=== PATIENT | male | born 1955 | race Caucasian/White ===

== ENCOUNTER → 2016-10-20 | Outpatient (CLI) | payer OTHER ==
[~2016-10-20] MED LIST: ACET500T71 PO; AMLO10TA2 PO; AMLO5TAB2 PO; ASPI-496 PO; ATEN50TA41 PO; ATOR80TA75 PO; CARV6.252 PO; CEFD300C37 PO; CHOL200024 PO; CLOP75TA PO; DIAZ5TAB4 PO; DOXE150C PO; DOXY100T PO; FAMO20TA7 PO; FURO20TA3 PO; GEMF600T3 PO; LOSA50TA6 PO; MELA5TAB PO; MORP30TA81 PO; MULT-717 PO; OXYC-229 PO; OXYC-302 PO; PRED10TA PO; [UNRECOGNIZED DRUG - OTHER]; [UNRECOGNIZED DRUG - OTHER] PO; testosterone IM
== END | disposition home or self-care (01) ==
LOC: CFH 12:54
PROVIDERS: ATTEND Internal Medicine Cardiovascular Disease
DX: I08.0 Rheumatic disorders of both mitral and aortic valves (principal); I25.5 Ischemic cardiomyopathy; I37.1 Nonrheumatic pulmonary valve insufficiency; I25.10 Atherosclerotic heart disease of native coronary artery without angina pectoris; I25.2 Old myocardial infarction; Z95.1 Presence of aortocoronary bypass graft
CPT/HCPCS: 93306

== ENCOUNTER 2017-03-05 10:07 | Observation (INO) | payer OTHER ==
[2017-02-26 12:10] VITALS: BP 117/83
[~2017-03-05] VITALS: Ht 177.8 cm; Wt 93.0 kg
[~2017-03-05 10:07] MED LIST changes: +ALBU6.7H INH; +ATOR-2 PO; -ATOR80TA75 PO; -MELA5TAB PO; +MELA5TAB19 PO; -OXYC-229 PO; +OXYC-307 PO; +TICA90TA PO; +[UNRECOGNIZED DRUG - OTHER] PO
[2017-03-05] MEDS ORDERED: DOXE150C PO (10:54)
[2017-03-05] MEDS ORDERED: methylPREDNISolone SOD SUCC 125 MG/2 ML ONE (12:19)
[2017-03-05] MEDS ORDERED: DIPHENHYDRAMINE 50 MG/ML, 1ML ONE ×2 (12:19→13:00)
[2017-03-05] MEDS ORDERED: LIDOCAINE 2%, 20ML ONE (12:20)
[2017-03-05] MEDS ORDERED: CEFAZOLIN PMX 1GM/50ML 0 ML ONE (12:20)
[2017-03-05] MEDS ORDERED: CEFAZOLIN 1,000 MG ONE (12:20)
[2017-03-05] MEDS ORDERED: MIDAZOLAM 1 MG/ML, 5ML ONE (12:54)
[2017-03-05] MEDS ORDERED: FENTANYL PF 100 MCG/2ML ONE (12:54)
[2017-03-05] MEDS ORDERED: ONDANSETRON 2MG/ML, 2ML ONE (13:00)
[2017-03-05] MEDS ORDERED: PHENYLEPHRINE 10 MG/ML ONE (13:00)
[2017-03-05] MEDS ORDERED: PROPOFOL 10 MG/ML, 20ML ONE (13:00)
[2017-03-05] MEDS ORDERED: ROCURONIUM 10 MG/ML ONE (13:00)
[2017-03-05] MEDS ORDERED: SUCCINYLCHOLINE 20 MG/ML, 10ML ONE (13:00)
[2017-03-05] MEDS ORDERED: VANCOMYCIN 500 MG ONE (13:03)
[2017-03-05] MEDS ORDERED: VANCOMYCIN PMX 1GM/200ML 200 ML ONE (13:04)
[2017-03-05] MEDS ORDERED: DIAZEPAM 5 MG TABLET PO PRN (14:30)
[2017-03-05] MEDS ORDERED: LABETALOL 5MG/ML, 20ML IV PRN (14:30)
[2017-03-05] MEDS ORDERED: hydrALAzine 20 MG/ML, 1ML IV PRN (14:30)
[2017-03-05] MEDS ORDERED: ONDANSETRON 2MG/ML, 2ML IVPush PRN (14:30)
[2017-03-05] MEDS ORDERED: MEPERIDINE/PF 25MG/0.5ML IVPush PRN (14:30)
[2017-03-05] MEDS ORDERED: OXYcodone 5 MG/5 ML ORAL.SOL UDC PO PRN (14:30)
[2017-03-05] MEDS ORDERED: MIDAZOLAM 1 MG/ML, 2ML IV PRN (14:30)
[2017-03-05] MEDS ORDERED: ONDANSETRON 2MG/ML, 2ML IV PRN (14:30)
[2017-03-05] MEDS ORDERED: HYDROmorphone 1 MG/ML, 1ML IV PRN (14:30)
[2017-03-05] MEDS ORDERED: VANCOMYCIN PMX 1GM/200ML 200 ML IVPB SCH (14:30)
[2017-03-05] MEDS ORDERED: PROMETHAZINE 25 MG/ML, 1ML IV PRN (14:30)
[2017-03-05] MEDS ORDERED: ALBUTEROL SULFATE 2.5 MG/3 ML NPPB PRN ×2 (14:30)
[2017-03-05] MEDS ORDERED: OXYcodone/APAP 10/325MG TABLET PO PRN (14:30)
[2017-03-05] MEDS ORDERED: FENTANYL PF 100 MCG/2ML IV PRN (14:30)
[2017-03-05 15:58] VITALS: BP 109/68
[2017-03-05] MEDS ORDERED: VENTOLIN INH PRN (17:00)
[2017-03-05 19:54] VITALS: BP 102/66
[2017-03-05] MEDS: TICAGRELOR 90 MG TABLET PO SCH (21:00)
[2017-03-05] MEDS ORDERED: FAMOTIDINE 20 MG TABLET PO SCH (21:00)
[2017-03-05] MEDS ORDERED: ATORVASTATIN 80 MG TABLET HOMEMEDPO SCH (21:00)
[2017-03-05] MEDS: CARVEDILOL 6.25 MG TABLET PO SCH (21:00)
[2017-03-05] MEDS ORDERED: MELATONIN 5 MG TABLET PO SCH (21:00)
[2017-03-05] MEDS: GEMFIBROZIL 600 MG TABLET HOMEMEDPO SCH (21:00)
[2017-03-05] MEDS: SODIUM CHLORIDE FLUSH 10ML SYR IVF SCH (21:43)
[2017-03-05] MEDS: VANCOMYCIN PMX 1GM/200ML 200 ML IVPB SCH ×2 (21:44→22:01)
[2017-03-05] MEDS ORDERED: DIAZEPAM 5 MG TABLET HOMEMEDPO PRN (22:00)
[2017-03-05] MEDS: OXYcodone/APAP 10/325MG TABLET HOMEMEDPO PRN (22:12)
[2017-03-06 01:38] VITALS: BP 101/66
[2017-03-06 08:17] VITALS: BP 110/70
[2017-03-06] MEDS ORDERED: ASPIRIN 81 MG TABLET EC PO SCH (09:00)
[2017-03-06] MEDS: SODIUM CHLORIDE FLUSH 10ML SYR IVF SCH (09:00)
[2017-03-06] MEDS ORDERED: LOSARTAN 50MG TABLET HOMEMEDPO SCH (09:00)
[2017-03-06] MEDS ORDERED: DOXEPIN 25 MG CAPSULE HOMEMEDPO SCH (09:00)
[2017-03-06] MEDS ORDERED: CHOLECALCIFEROL 1,000 UNIT TABLET PO SCH (09:00)
[2017-03-06] MEDS ORDERED: FUROSEMIDE 20 MG TABLET PO SCH (09:00)
[2017-03-06] MEDS: GEMFIBROZIL 600 MG TABLET HOMEMEDPO SCH (10:36)
[2017-03-06] MEDS: TICAGRELOR 90 MG TABLET PO SCH (10:36)
[2017-03-06] MEDS: CARVEDILOL 6.25 MG TABLET PO SCH (10:36)
[2017-03-06] MEDS: OXYcodone/APAP 10/325MG TABLET HOMEMEDPO PRN (10:38)
== END 2017-03-06 12:00 | disposition home or self-care (01) ==
LOC: CACL 10:07 → ORIP 14:13 → 5SO 15:31 → DCLOUNGE 03-06 11:07
PROVIDERS: ADMIT Internal Medicine Cardiovascular Disease; ATTEND Internal Medicine Cardiovascular Disease
DX: I25.10 Atherosclerotic heart disease of native coronary artery without angina pectoris (principal); J44.9 Chronic obstructive pulmonary disease, unspecified; G47.30 Sleep apnea, unspecified; E78.5 Hyperlipidemia, unspecified; I34.0 Nonrheumatic mitral (valve) insufficiency; I10 Essential (primary) hypertension; I42.9 Cardiomyopathy, unspecified
CPT/HCPCS: 33249; 71010; 93641; 96365; 96366; C1721; C1779; C1892; C1895; G0378; J0330; J1200; J2250; J2370; J2405; J2704; J2930; J3010; J3370; J3490; J0690

== ENCOUNTER 2017-06-07 13:32 | Emergency (ER) | payer OTHER ==
[~2017-06-07] VITALS: Ht 175.3 cm; Wt 92.1 kg
[2017-06-07] MEDS ORDERED: SODIUM CHLORIDE FLUSH 10ML SYR IVF ONE (14:30)
[2017-06-07 14:37] LABS: BASOPHILS # (AUTO) 0.05 x10^3/uL (0-0.1); BASOPHILS % (AUTO) 0 % (0-1); EOSINOPHILS # (AUTO) 0.26 x10^3/uL (0-0.4); EOSINOPHILS % (AUTO) 2 % (1-7); LYMPHOCYTES # (AUTO) 2.98 x10^3/uL (1-3.4); LYMPHOCYTES % (AUTO) 26 % (22-44); MD NO; MEAN CORPUSCULAR HEMOGLOBIN 31.8 pg (27.5-34.5); MEAN CORPUSCULAR HGB CONC 33.6 g/dL (33.2-36.2); MEAN CORPUSCULAR VOLUME 94.5 fL (81-97); MEAN PLATELET VOLUME 7.7 fL (7.4-10.4); MONOCYTES # (AUTO) 0.67 x10^3/uL (0.2-0.8); MONOCYTES % (AUTO) 6 % (2-9); NEUTROPHILS # (AUTO) 7.52 x10^3/uL (1.8-6.8); NEUTROPHILS % (AUTO) 66 % (42-75); PLATELET COUNT 250 x10^3/uL (130-400); RED BLOOD COUNT 4.31 x10^6/uL (4.38-5.82); RED CELL DISTRIBUTION WIDTH 13.3 % (9.4-14.8)
[2017-06-07 14:47] LABS: ALANINE AMINOTRANSFERASE 37 U/L (12-78); ALBUMIN 4.3 g/dL (3.4-5.0); ANION GAP 11 mmol/L (5-15); CALCIUM 9.5 mg/dL (8.5-10.1); CHLORIDE 104 mmol/L (98-107); CREATININE 1.27 mg/dL (0.7-1.3)
[2017-06-07 14:51] LABS: ALKALINE PHOSPHATASE 73 U/L (45-117); BILIRUBIN,TOTAL 0.3 mg/dL (0.2-1.0); TOTAL PROTEIN 8.3 g/dL (6.4-8.2); TROPONIN I < 0.015 ng/mL (0.000-0.045)
[2017-06-07 14:59] LABS: INTERNATIONAL NORMALIZED RATIO 1.01 (0.93-1.1); PROTHROMBIN TIME 10.4 Seconds (9.6-11.5)
[2017-06-07 16:27] VITALS: BP 137/71
== END 2017-06-07 16:28 | disposition home or self-care (01) ==
LOC: ED 14:29
DX: R20.2 Paresthesia of skin (principal); I10 Essential (primary) hypertension; E11.9 Type 2 diabetes mellitus without complications; E78.00 Pure hypercholesterolemia, unspecified; I25.2 Old myocardial infarction; R51 Headache; R79.1 Abnormal coagulation profile
CPT/HCPCS: 36415; 70450; 80053; 84484; 85025; 85610; 85730; 93005; 99285

== ENCOUNTER → 2018-01-13 | Outpatient (CLI) | payer OTHER ==
[~2018-01-13] MED LIST changes: -AMLO10TA2 PO; +AMLO10TA6 PO; -AMLO5TAB2 PO; +AMLO5TAB7 PO; -GEMF600T3 PO; +GEMF600T4 PO; -LOSA50TA6 PO; +LOSA50TA7 PO
== END | disposition home or self-care (01) ==
LOC: CFH 12:26
PROVIDERS: ATTEND Internal Medicine Cardiovascular Disease
DX: I34.0 Nonrheumatic mitral (valve) insufficiency (principal); I35.8 Other nonrheumatic aortic valve disorders; I34.8 Other nonrheumatic mitral valve disorders; I11.0 Hypertensive heart disease with heart failure; I50.9 Heart failure, unspecified; I25.5 Ischemic cardiomyopathy; J44.9 Chronic obstructive pulmonary disease, unspecified; E78.5 Hyperlipidemia, unspecified; E11.9 Type 2 diabetes mellitus without complications; I21.9 Acute myocardial infarction, unspecified; F17.210 Nicotine dependence, cigarettes, uncomplicated
CPT/HCPCS: 93306

== ENCOUNTER 2018-10-11 11:11 | Observation (INO) | payer MEDICARE ==
[~2018-10-11] VITALS: Ht 177.8 cm; Wt 88.4 kg
[~2018-10-11 11:11] MED LIST changes: +AMLO-150 PO; -AMLO10TA6 PO; +AMLO10TA8 PO; -AMLO5TAB7 PO; -GEMF600T4 PO; +GEMF600T8 PO; +LOSA50TA14 PO; -LOSA50TA7 PO
[2018-10-11 13:04] VITALS: BP 135/80
[2018-10-11] MEDS ORDERED: INSU100I13 SC (13:29)
[2018-10-11] MEDS ORDERED: CLOP75TA PO (13:29)
[2018-10-11] MEDS ORDERED: MULT-717 PO (13:29)
[2018-10-11] MEDS ORDERED: ISOS20TA3 PO (13:29)
[2018-10-11] MEDS ORDERED: LOSA100T14 PO (13:29)
[2018-10-11] MEDS ORDERED: FLUT1BLS3 IH (13:29)
[2018-10-11] MEDS ORDERED: TIZA4CAP PO (13:29)
[2018-10-11] MEDS ORDERED: NITR0.4T41 SL (13:29)
[2018-10-11] MEDS ORDERED: VERAPAMIL 2.5 MG/ML, 2ML ONE (14:47)
[2018-10-11] MEDS ORDERED: MIDAZOLAM 1 MG/ML, 5ML ONE (14:47)
[2018-10-11] MEDS ORDERED: FENTANYL PF 100 MCG/2ML ONE ×2 (14:47→15:04)
[2018-10-11] MEDS ORDERED: BIVALIRUDIN 250 MG ONE ×2 (14:47→15:58)
[2018-10-11] MEDS ORDERED: LIDOCAINE-MPF 1%, 5ML ONE (14:48)
[2018-10-11] MEDS ORDERED: HEPARIN 1,000 UNITS/ML, 10ML ONE (14:48)
[2018-10-11] MEDS ORDERED: LIDOCAINE 1%, 20ML ONE (14:55)
[2018-10-11] MEDS ORDERED: DIPHENHYDRAMINE 50 MG/ML, 1ML ONE (15:17)
[2018-10-11] MEDS ORDERED: CLOPIDOGREL 75 MG TABLET ONE (16:39)
[2018-10-11] MEDS ORDERED: BIVALIRUDIN 250 MG in SODIUM CHLORIDE 0.9% 50 ML IV SCH (16:43)
[2018-10-11] MEDS ORDERED: SODIUM CHLORIDE 0.9% 1,000 ML IV SCH (16:43)
[2018-10-11] MEDS ORDERED: OXYcodone/APAP 10/325MG TABLET PO PRN (17:00)
[2018-10-11] MEDS ORDERED: ONDANSETRON 2MG/ML, 2ML IVPush PRN (17:00)
[2018-10-11] MEDS ORDERED: ACETAMINOPHEN 325 MG TABLET PO PRN (17:00)
[2018-10-11] MEDS ORDERED: morphine SULFATE 10 MG/ML, 1ML IVPush PRN (17:00)
[2018-10-11] MEDS ORDERED: NITROGLYCERIN SINGLE TAB 0.4 MG SL PRN (17:00)
[2018-10-11] MEDS ORDERED: TIZANIDINE 4MG TABLET PO PRN (18:00)
[2018-10-11] MEDS ORDERED: ALBUTEROL SULFATE 2.5 MG/3 ML NPPB PRN (18:00)
[2018-10-11] MEDS ORDERED: ALBUTEROL/IPRATROPIUM 2.5MG/0.5MG, 3 ML NPPB SCH (18:00)
[2018-10-11 19:57] VITALS: BP 134/85
[2018-10-11] MEDS ORDERED: INSULIN GLARGINE 100 UNITS/ML, PEN SQ-INSULIN SCH (21:00)
[2018-10-11] MEDS ORDERED: BUDESONIDE 0.5 MG/2 ML INHA NPPB SCH (21:00)
[2018-10-11] MEDS ORDERED: FAMOTIDINE 20 MG TABLET PO SCH (21:00)
[2018-10-11] MEDS ORDERED: DOXEPIN 25 MG CAPSULE PO SCH (21:00)
[2018-10-11] MEDS ORDERED: DOXEPIN 100 MG CAPSULE PO SCH (21:00)
[2018-10-11] MEDS ORDERED: ATORVASTATIN 80 MG TABLET PO SCH (21:00)
[2018-10-11] MEDS: CARVEDILOL 6.25 MG TABLET PO SCH (21:24)
[2018-10-11] MEDS: GEMFIBROZIL 600 MG TABLET PO SCH (21:24)
[2018-10-11 23:38] LABS: TROPONIN I 0.196 ng/mL (0.000-0.045)
[2018-10-12 04:42] VITALS: BP 103/68
[2018-10-12 04:46] LABS: ANION GAP 9 mmol/L (5-15); CHLORIDE 108 mmol/L (98-107); CREATININE 1.15 mg/dL (0.7-1.3)
[2018-10-12 08:30] VITALS: BP 114/65
[2018-10-12] MEDS ORDERED: LOSARTAN 50MG TABLET PO SCH (09:00)
[2018-10-12] MEDS ORDERED: ISOSORBIDE MONONITRATE ER 30 MG TABLET PO SCH (09:00)
[2018-10-12] MEDS ORDERED: MULTIVITAMINS/MINERALS TABLET PO SCH (09:00)
[2018-10-12] MEDS ORDERED: CHOLECALCIFEROL 1,000 UNIT TABLET PO SCH (09:00)
[2018-10-12] MEDS ORDERED: ASPIRIN 81 MG TABLET EC PO SCH (09:00)
[2018-10-12] MEDS ORDERED: CLOPIDOGREL 75 MG TABLET PO SCH (09:00)
[2018-10-12] MEDS: GEMFIBROZIL 600 MG TABLET PO SCH (09:01)
[2018-10-12] MEDS: CARVEDILOL 6.25 MG TABLET PO SCH (09:02)
[2018-10-12] MEDS ORDERED: SPIR25TA PO (10:17)
== END 2018-10-12 10:24 | disposition home or self-care (01) ==
LOC: CACL 11:11 → UNDOADMOB 16:43 → 5SO 16:43 → DCLOUNGE 10-12 10:10
PROVIDERS: ADMIT Internal Medicine Cardiovascular Disease; ATTEND Internal Medicine Cardiovascular Disease
DX: I25.110 Atherosclerotic heart disease of native coronary artery with unstable angina pectoris (principal); J43.9 Emphysema, unspecified; G47.30 Sleep apnea, unspecified; I42.9 Cardiomyopathy, unspecified; E78.5 Hyperlipidemia, unspecified; I34.0 Nonrheumatic mitral (valve) insufficiency; I73.9 Peripheral vascular disease, unspecified; I50.9 Heart failure, unspecified; Z95.810 Presence of automatic (implantable) cardiac defibrillator; Z79.899 Other long term (current) drug therapy
CPT/HCPCS: 36415; 80048; 82962; 84484; 85018; 93005; 93455; 96372; 99156; 99157; C1725; C1760; C1769; C1874; C1887; C1894; C9600; G0378; J0583; J1200; J2250; J3010; J3490; Q9967; J1644

== ENCOUNTER 2019-12-15 06:20 | Day surgery (SDC) | payer MEDICARE ==
[~2019-12-15] VITALS: Ht 175.3 cm; Wt 85.5 kg
[~2019-12-15 06:20] MED LIST changes: +ACET500T64 PO; -ACET500T71 PO; -ALBU6.7H INH; +ALBU6.7H8 INH; +FLUT1BLS3 IH; +INSU100I13 SC; +ISOS20TA3 PO; +LOSA100T14 PO; +MELA5TAB14 PO; -MELA5TAB19 PO; +NITR0.4T41 SL; +SPIR25TA PO; +TIZA4CAP PO
[2019-12-15] MEDS ORDERED: CHLORHEXIDINE 15 ML UDC MM STA (06:40)
[2019-12-15] MEDS ORDERED: LACTATED RINGERS 1,000 ML IV SCH (06:40)
[2019-12-15 07:12] VITALS: BP 135/73
[2019-12-15] MEDS ORDERED: MIDAZOLAM 1 MG/ML, 2ML ONE (08:08)
[2019-12-15] MEDS ORDERED: PROPOFOL 10 MG/ML, 20ML ONE ×2 (08:27)
[2019-12-15] MEDS ORDERED: ALBUTEROL SULFATE 2.5 MG/3 ML NPPB PRN (08:30)
[2019-12-15] MEDS ORDERED: KETOROLAC 30 MG/1 ML IV PRN (08:30)
[2019-12-15] MEDS ORDERED: PROMETHAZINE 25 MG/ML, 1ML IV PRN (08:30)
[2019-12-15] MEDS ORDERED: LABETALOL 5MG/ML, 20ML IV PRN (08:30)
[2019-12-15] MEDS ORDERED: ACETAMINOPHEN 325 MG TABLET PO PRN (08:30)
[2019-12-15] MEDS ORDERED: MEPERIDINE/PF 25MG/0.5ML IVPush PRN (08:30)
[2019-12-15] MEDS ORDERED: FENTANYL PF 100 MCG/2ML IV PRN (08:30)
[2019-12-15] MEDS ORDERED: DIAZEPAM 5 MG/ML, 2ML IVPush PRN (08:30)
[2019-12-15] MEDS ORDERED: HYDROmorphone 2 MG/ML, 1ML IVPush PRN (08:30)
[2019-12-15] MEDS ORDERED: hydrALAzine 20 MG/ML, 1ML IV PRN (08:30)
[2019-12-15] MEDS ORDERED: OXYcodone 5 MG/5 ML ORAL.SOL UDC PO PRN (08:30)
== END 2019-12-15 10:20 | disposition home or self-care (01) ==
LOC: OUT 06:20
PROVIDERS: ATTEND Internal Medicine Gastroenterology
DX: R19.7 Diarrhea, unspecified (principal); Z11.59 Encounter for screening for other viral diseases; K92.1 Melena; D12.3 Benign neoplasm of transverse colon; D12.2 Benign neoplasm of ascending colon; K21.9 Gastro-esophageal reflux disease without esophagitis; K29.50 Unspecified chronic gastritis without bleeding; K63.89 Other specified diseases of intestine; K64.1 Second degree hemorrhoids; K64.4 Residual hemorrhoidal skin tags; K57.30 Diverticulosis of large intestine without perforation or abscess without bleeding; J44.9 Chronic obstructive pulmonary disease, unspecified; M19.90 Unspecified osteoarthritis, unspecified site; I11.9 Hypertensive heart disease without heart failure; I25.10 Atherosclerotic heart disease of native coronary artery without angina pectoris; I25.5 Ischemic cardiomyopathy; I50.9 Heart failure, unspecified; E11.9 Type 2 diabetes mellitus without complications; F17.210 Nicotine dependence, cigarettes, uncomplicated; F12.90 Cannabis use, unspecified, uncomplicated; E78.5 Hyperlipidemia, unspecified; Z79.82 Long term (current) use of aspirin; Z88.0 Allergy status to penicillin; Z91.018 Allergy to other foods; Z88.8 Allergy status to other drugs, medicaments and biological substances; Z88.2 Allergy status to sulfonamides; Z88.1 Allergy status to other antibiotic agents; Z79.899 Other long term (current) drug therapy; Z98.890 Other specified postprocedural states; Z95.0 Presence of cardiac pacemaker; Z95.5 Presence of coronary angioplasty implant and graft; Z79.4 Long term (current) use of insulin; Z72.89 Other problems related to lifestyle
CPT/HCPCS: 36415; 43239; 45380; 45385; 87635; 88305; 93005; J2250; J2704

== ENCOUNTER → 2020-09-26 | Outpatient (CLI) | payer MEDICARE ==
[~2020-09-26] MED LIST changes: +AMLO-211 PO; -AMLO10TA8 PO; +GEMF-31 PO; -GEMF600T8 PO; +ISOS20TA10 PO; -ISOS20TA3 PO; -OXYC-302 PO; -OXYC-307 PO; +OXYC-380 PO; +OXYC1TAB14 PO
== END | disposition home or self-care (01) ==
LOC: CFH 15:41
PROVIDERS: ATTEND Internal Medicine Cardiovascular Disease
DX: I08.3 Combined rheumatic disorders of mitral, aortic and tricuspid valves (principal); I42.9 Cardiomyopathy, unspecified; I11.9 Hypertensive heart disease without heart failure
CPT/HCPCS: 93306